=== PATIENT | male | born 1970 | race Caucasian/White ===

== ENCOUNTER 2019-04-15 09:37 | Emergency (ER) | payer OTHER ==
[2019-04-15] MEDS: LIDOCAINE/MYLANTA 40 ML BTL PO (09:58)
[2019-04-15] MEDS: BELLADONNA/PHENOBARBITAL TAB PO (09:58)
== END 2019-04-15 10:43 | disposition home or self-care (01) ==
LOC: FTE 09:37
DX: K21.9 Gastro-esophageal reflux disease without esophagitis (principal)
CPT/HCPCS: 71045; 93005; 99284-25

== ENCOUNTER 2019-04-25 11:59 | Emergency (ER) | payer OTHER | END 2019-04-25 13:20 | disposition home or self-care (01) | LOC: FTE 11:59 | DX: J20.9 Acute bronchitis, unspecified (principal); F17.210 Nicotine dependence, cigarettes, uncomplicated; Z79.82 Long term (current) use of aspirin | CPT/HCPCS: 99283; Z7502 ==